=== PATIENT | male | born 1960 | race Caucasian/White ===

== ENCOUNTER 2017-04-27 14:39 | Inpatient (IN) | payer OTHER ==
[2017-04-27] MEDS ORDERED: ACETAMINOPHEN 325 MG TAB PO PRN (17:33)
[2017-04-27] MEDS ORDERED: traMADol 50 MG TAB PO PRN (17:34)
[2017-04-27] MEDS ORDERED: BISACODYL 10 MG SUPP PR PRN (17:35)
[2017-04-27] MEDS ORDERED: ALBUTEROL 200 PUFFS/18 GM MDI IH PRN (17:35)
--- NOTE | 2017-04-27 18:35 | PDOREHIP ---
Admission IRF-[facility] - Admission - 3 Day Assessment Period Admission Date/Day 1: 04/27/17 Day 2: 04/28/17 Day 3: 04/29/17 - Active Diagnoses Comorbidities and Co-existing Conditions at Admission: 31399. None of the Above - Skin Conditions Unhealed Pressure Ulcer (1 or more/Stage 1 or >)-Admission: 0. No
--- NOTE | 2017-04-27 19:16 | GHP ---
[f rep st] HISTORY AND PHYSICAL POST ADMISSION PHYSICIAN EVALUATION AND REHABILITATION TREATMENT PLAN DATE OF ADMISSION: 04/27/2017 DATE OF EVALUATION: 04/27/2017 TIME OF EVALUATION: 1745 REFERRING FACILITY: [facility] REFERRING PHYSICIAN: Jayden Mcgill MD IMPAIRMENT GROUP: 2.1. DATE OF ONSET: 04/21/2017 CONSULTING PHYSICIANS: He was seen in consultation with Dr. Almendarez of the pulmonary and critical care service. REHABLITATION DIAGNOSIS: Debility following craniotomy and evacuation of a chronic subdural hematoma. ETIOLOGIC DIAGNOSIS: Nontraumatic brain dysfunction. DATE OF SURGERY: 04/22/2017 HISTORY OF PRESENT ILLNESS: This patient developed a subdural home hematoma after a fall in January 2017. He fell while he was intoxicated on alcohol. He had gradual decrease in his balance subsequently. He was evaluated at [facility] for these symptoms on March 21, 2017. Brain imaging found a chronic right subdural hematoma. He had improvement in his mental status during that hospitalization which was attributed to his clearing from the effects of alcohol intoxication. He returned to the neurosurgery clinic on April 18, 2017, with complaints of worsened balance, some confusion, and possible double vision. Repeat CT scan on April 18 showed expansion of the chronic right subdural hematoma. He was unable to ambulate and was in a wheelchair. He had been sober for 6 days following a DUI arrest so alcohol intoxication was not a factor in his balance impairment. He was admitted to the hospital through the neurosurgery clinic. He underwent craniotomy and evacuation of the subdural hematoma on 04/22/2017. His postoperative course was uncomplicated. A subdural drain was placed during surgery and was removed 2 days prior to discharge. He was in the ICU until 2 days prior to discharge. He currently complains of continuing difficulty with ambulation. He reports that his left foot slides along the ground rather than being able to lift it while he is walking. Studies and labs in the hospital: Metabolic profile on 04/26/2017, the day before discharge, was overall within normal limits. CBC on 04/26/2017, showed mild anemia with a hemoglobin of 12.7, hematocrit of 36.7, white blood cell count was normal at 6.1, and platelet count was 156. Liver function tests on , revealed a low albumin at 2.7, slightly elevated AST at 57 with normal ALT at 65. On 04/23/2017, AST and ALT had been 130 and 126. Bilirubin was normal. Lipid panel was drawn on 04/23/2017. Total cholesterol was 180, HDL was 47, and LDL was 119. Other labs revealed a normal magnesium, normal PT , PTT, and INR. CT scan on 04/25/2017, of the head showed a right frontoparietal mixed attenuation subdural hematoma which had been stable since surgery. It was 1.5 cm in the greatest coronal dimension. There was mass effect on the underlying parenchyma, but no midline shift. There was a small amount of pneumocephalus. PRECAUTIONS: He is a fall risk and he has seizure precautions. ACTIVE COMORBIDITIES: He has no active tier 1, tier 2, or tier 3 comorbidities. PAST MEDICAL HISTORY: 1. Alcohol dependence and alcohol abuse. 2. History of concussion at age 16. 3. Asthma. PAST SURGICAL HISTORY: He has not had previous surgeries. ALLERGIES: There are no known drug allergies. PRE-HOSPITAL MEDICATIONS: 1. Albuterol 1-2 puffs p.r.n. 2. Famotidine 10 mg p.o. daily. 3. Lorazepam 1 mg every 8 hours p.r.n. 4. Multivitamin daily. 5. Thiamine 100 mg p.o. daily. ADMISSION MEDICATIONS: 1. Acetaminophen 650 mg q.6 hours p.r.n. 2. Albuterol 2 puffs q.4 hours p.r.n. 3. Famotidine 10 mg p.o. twice daily p.r.n. 4. Levetiracetam 1000 mg p.o. twice daily until 14 days postsurgical through . 5. Multivitamin p.o. daily. 6. Thiamine 100 mg p.o. daily. 7. Tramadol 25 mg p.o. q.6 hours p.r.n. FAMILY HISTORY: Noncontributory. PSYCHOSOCIAL HISTORY: He is . He lives with his . He has a large alcohol history, though he reports he was sober for 3 years and had a gradual relapse leading to his fall and his DUI. 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 REVIEW OF SYSTEMS: Pain is well controlled. In the hospital, he was taking tramadol 50 mg q.6 hours with acetaminophen though he has been discharged on tramadol 25 mg q.6 hours p.r.n. He denies headache, vision changes, difficulty swallowing, weakness, numbness, or tingling of the extremities other than his abnormal gait on the left lower extremity and abnormal balance. He denies cough or dyspnea. He denies chest pain or palpitations. He has had constipation in the hospital, but his last bowel movement was this afternoon. He denies nausea or vomiting. He reports a good appetite. He reports a volitional weight loss of approximately 30 pounds over a period of several months by being careful with his diet. He denies dysuria or urinary frequency. He denies skin rash or skin breakdown. He denies joint pain or joint swelling ; and otherwise a 10-point review of systems is negative. PHYSICAL EXAMINATION: VITAL SIGNS: Vitals are not had not yet available in the chart. Nurse reported blood pressure was 140/100. GENERAL: This is a well -nourished, well-developed man dressed in street clothes, sitting on the edge of the bed, cooperative, and in no acute distress. HEENT: Extraocular movements are intact. Pupils are equal, round, and reactive to light. Mucous membranes are moist. Dentition is in good condition. He has an uncrowded airway, Mallampati class 1. NECK: Supple. HEART: There is a regular rate and rhythm with no murmurs, rubs, or gallops. LUNGS: Clear to auscultation bilaterally. ABDOMEN: Soft, nontender, nondistended with normoactive bowel sounds and no hepatosplenomegaly. EXTREMITIES: There is no cyanosis, clubbing , or edema. He wears an ankle bracelet on the left ankle related to compliance with his DUI charge. NEUROLOGIC: He is alert and oriented x3. Cranial nerves 2-12 are grossly intact. Visual keys by confrontation are reduced in all quadrants, possibly more so in the right upper and right lower quadrants. There is no focal weakness. Sensation is intact to light touch. Deep tendon reflexes are 2+ bilaterally at the biceps and patella, and at the right Achilles tendon and hypoactive at the left Achilles tendon. There is no pronator drift. Cerebellar testing reveals normal [id number] bilaterally. CURRENT LEVEL OF FUNCTION: Per the preadmission screen: Regarding diet, feeding, and swallowing, he was on a regular diet. Regarding grooming, he had close supervision standing at the sink with minimal voice cuing. For dressing, he used a supervisor abattoir for lower body and had close supervision while sitting in a chair. Toileting was done with close supervision and minimal voice cuing. Regarding bed mobility, he was modified independent. He transferred with contact guard to standby assist with no device. Balance was noted to be decreased. Endurance was fair to good. Regarding gait, he required contact guard to close standby assist. He was able to ambulate 400 feet with breaks. He had decreased swing on the left lower extremity and decreased stepping. Regarding stairs, he was able to climb 24 stairs with a [id number] pattern and a step-thru pattern. Regarding cognition, he was noted to have mild impairment in attention, executive function, and visual spatial function. He was noted to be impulsive and to have decreased awareness of his impairments. IMPRESSION: This patient is a 56-year-old man with a large history of alcohol abuse and dependence who subsequently had several falls and developed a subdural hematoma. His symptoms worsened to the point where he was admitted to the hospital with expansion of a chronic subdural hematoma which required surgical evacuation. He underwent surgery on April 22, 2017. He has had an uneventful hospital course since then. He has significant balance impairment and may have cognitive issues, though they were not obvious on exam today. He is appropriate for inpatient rehabilitation where he will benefit from physical therapy and occupational therapy regarding mobility and activities of daily living, and speech therapy for cognitive evaluation. He will benefit from nursing care regarding wound healing, skin integrity, bowel and bladder, and medications. He will benefit from the care of physician regarding risk for seizures, risk for neurologic deterioration, pain management, and infection risk. His goal is to complete a rehabilitation stay and go home with his and outpatient services. For a safe discharge, it is anticipated that he will achieve independence with grooming and bed mobility, and modified independence for dressing, transfers, and ambulation with the least restrictive device on level and unlevel surfaces. It is anticipated that he may require supervision to standby assistance for bathing for safety. Depending on his progress regarding cognition, he may require 24 hour supervision. It is expected that he will demonstrate improved insight into his deficits. He will have therapy with physical therapy, occupational therapy, and speech and language pathology for 60 minutes per day per discipline on 5-7 days a week. His expected duration of stay is 5-7 days. It is anticipated that upon discharge, he will benefit from outpatient speech therapy and physical therapy. ASSESSMENT AND PLAN: 1. Debility with balance impairment following craniotomy and evacuation of a chronic subdural hematoma. PT and OT to optimize mobility and activities of daily living. 2. Possible cognitive impairment following craniotomy. Assessment and treatment per Speech and Language Pathology. Optimize sleep and maintain low stimulation initially. Avoid sedating medications. 3. Pain management, status post craniotomy. He appears to be quite comfortable. He was receiving tramadol 50 mg q.6 hours. He has been discharged on 25 mg; I will change that to a range of 25 to 50 mg q.6 hours as needed. I will also continue acetaminophen. 4. Seizure risk status post craniotomy and subdural hematoma. Levetiracetam will be continued through May 06 for a total of 14 days post surgery, per hospital discharge orders. 5. Restricted visual field. Further testing per occupational therapy. It seems unlikely that this is a result of his craniotomy. 6. Elevated blood pressure. He is out of the window for alcohol withdrawal. He may have hypertension. Blood pressure will be monitored and medications will be initiated if he needs them. 7. History of alcohol abuse and dependence. He will have assessment by Supervisor Motor Vehicle Assembly and appropriate referral for treatment after discharge. 8. Constipation, likely due to opiates and tramadol. Senna is ordered twice daily p.r.n. and bisacodyl as well as an enema are available if needed. 9. Volitional weight loss. There will be a dietary consult to optimize his nutrition for healing. 10. History of asthma. Albuterol has been ordered on an as-needed basis. DISCHARGE CONSIDERATIONS: He reports 2 steps to enter the house and there is a long curving staircase to the upper level. He is not driving nor is his as she has recently had cervical spine surgery. It is conceivable that they will need assistance especially for IADLs after he discharges. His reports that he could live on the lower level and not need to ascend the stairs. FOLLOWUP: Per the discharge summary, he is to follow up with neurosurgeon, Dr. Mcgill, 2 weeks postoperative or approximately May 06, 2017, for a wound check and staple removal. If he is still at inpatient rehabilitation at this time, this plan will be reviewed with Neurosurgery and possibly staple and suture removal can be done at inpatient rehabilitation. /[id number]/MODL MTDD
[2017-04-27] MEDS: levETIRAcetam 500 MG TAB PO SCH (20:24)
[2017-04-27] MEDS: traMADol 50 MG TAB PO PRN (20:24)
[2017-04-27] MEDS ORDERED: FAMOTIDINE 20 MG TAB PO PRN (21:00)
[2017-04-28] MEDS: ACETAMINOPHEN 325 MG TAB PO SCH ×4 (05:22→17:05)
[2017-04-28] MEDS: THIAMINE HCL 100 MG TAB PO SCH (08:07)
[2017-04-28] MEDS: MULTIVITAMINS 1 EACH TAB PO SCH (08:07)
[2017-04-28] MEDS: levETIRAcetam 500 MG TAB PO SCH ×2 (08:08→19:52)
--- NOTE | 2017-04-28 09:55 | SOAPPROG ---
SOAP Progress Note Assessment/Plan: Assessment: 56-year-old male with a subdural hematoma evacuated on March 21, 2017 after a month long gradual decrease in balance and function admitted to inpatient rehabilitation for impairments in cognition, mobility, and self-care. Today's update: This is the 1st time I am seeing the patient, all medical issues are new to this provider. Overall he is doing well, no neurological worsening. Participating well in therapies. Pain controlled on tramadol. Impaired mobility, self-care, and cognition status post subdural hematoma evacuation: Continue PT, OT, and speech language pathology for impairments. Low stimulation environment. Avoiding sedating medications. Pain management status post craniotomy: Continue tramadol, helpful. Continuing acetaminophen. Seizure risk status post subdural evacuation: Continue levetiracetam for total of 14 days post surgery, ending May 06. Visual field deficit: Further testing with occupational therapy. Hypertension: Normotensive at this point, continue to monitor. History of alcohol abuse and dependence: Working with social media community manager for treatment after discharge Constipation: Senna twice daily and physical as needed. Appears likely due to opioid use. Weight loss: Intentional, dietary consult. History of asthma: Albuterol as needed He in his family may need assistance especially for IADLs after discharge. Two steps to enter the house and a curving staircase to the upper level. He is not driving and his is recently had cervical spine surgery. They could potentially live on the lower level. He is to follow up with his neurosurgeon Dr. Mcgill approximately May 06 for wound check and staple removal. Review of neurosurgery if he is still on inpatient rehabilitation. Plan: 04/28/17 09:50 Subjective: Chief complaint: Headache pain No acute events overnight. Patient does endorse that he had mild headache that occurs in the evening, helped with tramadol. He has no particular concerns, no new numbness, tingling, weakness, or any new cognitive changes. No new chest pain or shortness of breath. He feels that he is making good progress so far but admits that his admission has been short so far. No other new concerns Objective: Vital Signs Temp Pulse Resp BP Pulse Ox 36.4 C 84 18 121/87 H 95 04/28/17 06:51 04/28/17 06:51 04/28/17 06:51 04/28/17 06:51 04/28/17 06:51 04/27/17 04/28/17 04/29/17 05:59 05:59 05:59 Intake Total 440 Output Total 1350 Balance -910 Physical Exam - Physical Exam General Appearance: WD/WN, alert, no apparent distress EENT: No scleral icterus (R), No scleral icterus (L) Respiratory: No respiratory distress, No accessory muscle use Cardiac/Chest: normal peripheral pulses, regular rate, rhythm, No edema Skin: normal color, warm/dry, No cyanosis Extremities: No pedal edema, No swelling Neuro/Psych: alert, normal mood/affect, No sensory deficit ICD10 Worksheet Patient Problems: Problems Problem Status Onset Debility Acute S/P craniotomy Acute SDH (subdural hematoma) Acute
[2017-04-28] MEDS: SENNOSIDES 1 TAB PO PRN (17:09)
[2017-04-28] MEDS: traMADol 50 MG TAB PO PRN (17:37)
[2017-04-28] MEDS: DOCUSATE SODIUM 100 MG CAP PO SCH (19:52)
[2017-04-29] MEDS: ACETAMINOPHEN 325 MG TAB PO SCH ×4 (06:34→18:27)
[2017-04-29] MEDS: DOCUSATE SODIUM 100 MG CAP PO SCH ×2 (08:36→20:00)
[2017-04-29] MEDS: SENNOSIDES 1 TAB PO PRN ×2 (08:36→20:00)
[2017-04-29] MEDS: THIAMINE HCL 100 MG TAB PO SCH (08:36)
[2017-04-29] MEDS: levETIRAcetam 500 MG TAB PO SCH ×2 (08:38→20:00)
[2017-04-29] MEDS: MULTIVITAMINS 1 EACH TAB PO SCH (08:39)
[2017-04-29] MEDS ORDERED: MAGNESIUM HYDROXIDE 30 ML UDCUP PO PRN (09:05)
--- NOTE | 2017-04-29 10:56 | SOAPPROG ---
SOAP Progress Note Assessment/Plan: Assessment: 56-year-old male with a subdural hematoma evacuated 04/22/2017 after a month long gradual decrease in balance and function admitted to inpatient rehabilitation for impairments in cognition, mobility, and self-care. * Impaired mobility, self-care, and cognition status post subdural hematoma evacuation. Initial functional independence measure 81. Standby assistance for transfers and ambulation and stairs. Standby assistance for activities of daily living. Decreased safety awareness. Drops items and has poor awareness that there on the floor. Unsafe attempting to don or doff pants while standing. Continue PT, OT, * Cognitive impairment. Scored 19/30 on the MOCA; 23/30 on the OLOG, but well below expected given age and education. Decreased executive function common, recall, Celexa Gee fluency. Impulsive with decreased insight. Continue speech language pathology for impairments. Low stimulation environment. Avoiding sedating medications * Pain management status post craniotomy: Continue tramadol p.r.n; he may decrease use due to constipating effect.. Continuing acetaminophen. * Seizure risk status post subdural evacuation: Continue levetiracetam for total of 14 days post surgery, ending May 06. * Visual field deficit: Further testing with occupational therapy. * Elevated blood pressure. Improved since admission. Continue to monitor. * History of alcohol abuse and dependence: Working with socially responsible investment adviser for treatment after discharge * Constipation: Appears likely due to opioid use. Continue senna; add milk of magnesia per his request. * Weight loss: Intentional, dietary consult. * History of asthma: Albuterol as needed Attended staffing, 15 minutes. Discussed with case management, pharmacy, dietitian, nursing, PT, OT, TUTORIAL LABORATORY SUPERVISOR. Patient was impulsively desiring to be discharged from the facility and did not want to be compliant with calling for assistance with mobility and ADLs. He subsequently was agreeable to staying. Set discharge goal of mid to end of next week, 05/04-05/06 2017. roller shop utility worker will attempt to arrange discharge to alcohol rehabilitation facility. 04/29/17 13:03 Subjective: Unhappy about alarms on bed and chair and need for assistance with transfers and mobility. Also has constipation. Sleeping well. Overall no pain at the incision but has what he describes as a dull thyroid deep to the incision over the posterior frontal/temporal region. Objective: Vital Signs Temp Pulse Resp BP Pulse Ox 36.6 C 82 14 127/90 H 95 04/28/17 19:51 04/28/17 19:51 04/28/17 19:51 04/28/17 19:51 04/28/17 19:51 04/28/17 04/29/17 04/30/17 05:59 05:59 05:59 Intake Total 440 1080 Output Total 1350 500 Balance -910 580 - Time Spent With Patient Time Spent With Patient: Greater than 35 minutes floor time today, including more than 50% of time in coordination of care during staffing meeting, and counseling patient. Physical Exam - Physical Exam General Appearance: WD/WN, alert, no apparent distress Respiratory: No respiratory distress, No accessory muscle use Skin: normal color, warm/dry, other (Sutures and 2 farida over the posterior cm. Clean dry and intact.) Neuro/Psych: no motor/sensory deficits, alert, normal mood/affect, oriented x 3 , other (Perseverative) ICD10 Worksheet Patient Problems: Problems Problem Status Onset Debility Acute S/P craniotomy Acute SDH (subdural hematoma) Acute
[2017-04-30] MEDS: ACETAMINOPHEN 325 MG TAB PO SCH ×4 (06:44→17:28)
[2017-04-30] MEDS: THIAMINE HCL 100 MG TAB PO SCH (09:01)
[2017-04-30] MEDS: MULTIVITAMINS 1 EACH TAB PO SCH (09:02)
[2017-04-30] MEDS: SENNOSIDES 1 TAB PO PRN (09:02)
[2017-04-30] MEDS: levETIRAcetam 500 MG TAB PO SCH ×2 (09:02→20:21)
[2017-04-30] MEDS: DOCUSATE SODIUM 100 MG CAP PO SCH ×2 (09:22→20:21)
--- NOTE | 2017-04-30 13:24 | SOAPPROG ---
SOAP Progress Note Assessment/Plan: Assessment: 56-year-old male with a subdural hematoma evacuated 04/22/2017 after a month long gradual decrease in balance and function admitted to inpatient rehabilitation for impairments in cognition, mobility, and self-care. * Impaired mobility, self-care, and cognition status post subdural hematoma evacuation. Initial functional independence measure 81. Standby assistance for transfers and ambulation and stairs. Standby assistance for activities of daily living. Decreased safety awareness. Drops items and has poor awareness that there on the floor. Unsafe attempting to don or doff pants while standing. Continue PT, OT, * Cognitive impairment. Scored 19/30 on the MOCA; 23/30 on the OLOG, but well below expected given age and education. Decreased executive function common, recall, Celexa Gee fluency. Impulsive with decreased insight. Continue speech language pathology for impairments. Low stimulation environment. Avoiding sedating medications * Pain management status post craniotomy: Patient avoiding tramadol 2/2 constipation, using tylenol PRN - if tramadol needs increase, plan on scheduled laxatives * Seizure risk status post subdural evacuation: Continue levetiracetam for total of 14 days post surgery, ending May 06. * Visual field deficit: Further testing with occupational therapy. * Elevated blood pressure. Stable o/n, cont monitor * History of alcohol abuse and dependence: Working with social human services assistants for treatment after discharge * Constipation: resolved 2/2 aggressive bowel regimen - cont scheduled senokot, will add scheduled laxatives tomorrow if recurs * Weight loss: Intentional, dietary consult. * History of asthma: Albuterol as needed Discharge goal of mid to end of next week, 05/04-05/06 2017. ammonia worker will attempt to arrange discharge to alcohol rehabilitation facility. Subjective: patient went out for a 20 minute walk, large BM yesterday s/p MoM/suppository Objective: Vital Signs Temp Pulse Resp BP Pulse Ox 36.6 C 86 14 114/83 H 99 04/29/17 18:28 04/30/17 08:00 04/30/17 08:00 04/30/17 08:00 04/30/17 08:00 04/29/17 04/30/17 05/01/17 05:59 05:59 05:59 Intake Total 1080 800 Output Total 500 850 Balance 580 -50 Physical Exam - Physical Exam General Appearance: alert, no apparent distress, No obtunded, No anxiety Respiratory: lungs clear, normal breath sounds, No respiratory distress, No crackles, No rales, No rhonchi, No wheezing Cardiac/Chest: regular rate, rhythm, No edema, No tachycardia, No systolic murmur, No irregularly irregular Abdomen: non-tender, soft, other (reduced bowel sounds), No distended, No guarding Skin: other (no erythema around R scalp incision site, [address], dried blood along incision, no overt tenderness) Neuro/Psych: oriented x 3, other (motor 5/5 bilat UE/LE, sensation intact bilat , CN II-XII intact and tested, cooperative and following commands, no asterixes , concentration 7/7) ICD10 Worksheet Patient Problems: Problems Problem Status Onset SDH (subdural hematoma) Acute S/P craniotomy Acute Debility Acute
[2017-05-01] MEDS: ACETAMINOPHEN 325 MG TAB PO SCH ×2 (06:52)
[2017-05-01] MEDS: MULTIVITAMINS 1 EACH TAB PO SCH (08:22)
[2017-05-01] MEDS: THIAMINE HCL 100 MG TAB PO SCH (08:22)
[2017-05-01] MEDS: DOCUSATE SODIUM 100 MG CAP PO SCH ×2 (08:22→21:17)
[2017-05-01] MEDS: levETIRAcetam 500 MG TAB PO SCH ×2 (08:22→21:17)
--- NOTE | 2017-05-01 15:02 | SOAPPROG ---
SOAP Progress Note Assessment/Plan: Assessment: 56-year-old male with a subdural hematoma evacuated 04/22/2017 after a month long gradual decrease in balance and function admitted to inpatient rehabilitation for impairments in cognition, mobility, and self-care. Plan: * Impaired mobility, self-care, and cognition status post subdural hematoma evacuation. Initial functional independence measure 81. Ambulating with cane, going outside safely with staff. Standby assistance for activities of daily living. Decreased safety awareness. Continue PT, OT * SDH. S/p R craniotomy by Dr. Mcgill, farida in posterior aspect, healing looking well - patient asked if he can wear a ball-cap, and presently I see no contraindications so long as it is not tight fitting, does not irritate healing surg site * Cognitive impairment. Scored 19/30 on the MOCA; 23/30 on the OLOG, but well below expected given age and education. Decreased executive function common, recall, Celexa Gee fluency. Impulsivity decreasing, becoming more patient with staff. Continue speech language pathology for impairments. Low stimulation environment. Avoiding sedating medications * Pain management status post craniotomy: Patient avoiding tramadol 2/2 constipation, using tylenol PRN - if tramadol needs increase, plan on scheduled laxatives * Seizure risk status post subdural evacuation: Continue levetiracetam for total of 14 days post surgery, ending May 06. * Visual field deficit: Further testing with occupational therapy. * Elevated blood pressure. Stable o/n, cont monitor * History of alcohol abuse and dependence: Working with director of social work for treatment after discharge * Constipation: resolved 2/2 aggressive bowel regimen - cont scheduled senokot, has had BM today * Weight loss: Intentional, dietary consult. * History of asthma: Albuterol as needed Discharge goal of mid to end of next week, 05/04-05/06 2017. whanau support worker will attempt to arrange discharge to alcohol rehabilitation facility. 05/01/17 14:59 05/01/17 15:01 Subjective: patient optimistic about recovery, had a BM Objective: Vital Signs Temp Pulse Resp BP Pulse Ox 36.8 C 80 18 118/95 H 100 05/01/17 08:00 05/01/17 08:00 05/01/17 08:00 04/30/17 18:38 05/01/17 08:00 08/09/0405/01/17 05/02/17 05:59 05:59 05:59 Intake Total 800 200 240 Output Total 850 Balance -50 200 240 Physical Exam - Physical Exam General Appearance: alert, no apparent distress, No obtunded, No anxiety Respiratory: lungs clear, normal breath sounds, No crackles, No rales, No wheezing Cardiac/Chest: regular rate, rhythm, No edema, No tachycardia, No systolic murmur, No irregularly irregular Abdomen: normal bowel sounds, non-tender, soft, No distended, No guarding Skin: other (no erythema/induration at surg site on scalp, mild scabbing, [address] posteriorly, not opening) Neuro/Psych: normal mood/affect, oriented x 3, other (CN II-XII intact and tested, motor 5/5 bilat UE/LE, sensation intact bilat, mild ataxia w/ ambulation , cooperative and follows commands) ICD10 Worksheet Patient Problems: Problems Problem Status Onset SDH (subdural hematoma) Acute S/P craniotomy Acute Debility Acute
[2017-05-01] MEDS: ACETAMINOPHEN 325 MG TAB PO PRN (17:54)
[2017-05-02] MEDS: levETIRAcetam 500 MG TAB PO SCH ×2 (09:35→20:46)
[2017-05-02] MEDS: MULTIVITAMINS 1 EACH TAB PO SCH (09:35)
[2017-05-02] MEDS: THIAMINE HCL 100 MG TAB PO SCH (09:35)
[2017-05-02] MEDS: DOCUSATE SODIUM 100 MG CAP PO SCH ×2 (09:35→20:46)
--- NOTE | 2017-05-02 12:58 | SOAPPROG ---
SOAP Progress Note Assessment/Plan: Assessment: 56-year-old male with a subdural hematoma evacuated 04/22/2017 after a month long gradual decrease in balance and function admitted to inpatient rehabilitation for impairments in cognition, mobility, and self-care. * Impaired mobility, self-care, and cognition status post subdural hematoma evacuation. Initial functional independence measure 81 on 04/29/2017; improved to the 92 on 05/02/2017. Independent with bed mobility and transfers. Walked 500 feet with a trekking pole, require supervision if he is outside or distracted. He has left sided neglect. Modified independent for activities of daily living. OT notes decreased judgment re safety, for instance standing on 1 leg to don pants. Continue PT, OT. * Cognitive impairment. Scored 19/30 on the MOCA; 23/30 on the OLOG, but well below expected given age and education. 5 standard deviations below the mean on the Frontal Assessment Battery. Decreased executive function, recall, lexical fluency. Impulsive with decreased insight. Continue speech language pathology for impairments. He reports a renewed commitment to working with DIRECTOR OF ANALYTICS on cognitive issues. Low stimulation environment. Avoid sedating medications * Pain management status post craniotomy: Adequate with p.r.n. acetaminophen. Not using tramadol. * Seizure risk status post subdural evacuation: Continue levetiracetam for total of 14 days post surgery, ending May 06. * Left hemineglect. Increases safety hazard. * Elevated blood pressure when admitted. Resolved. * History of alcohol abuse and dependence: Working with manager social work for treatment after discharge * Constipation: Resolved. Continue senna; docusate and milk of magnesia per his request. * Weight loss: Intentional, dietary consult. * History of asthma: Albuterol as needed Attended staffing, 15 minutes. Discussed with case management, pharmacy, dietitian, nursing, PT, OT, DIRECTOR OF ANALYTICS. He has presented challenges on the unit with impulsive changes in behavior, unreasonable demands, sometimes inappropriately assertive; observe for better behavior and increased compliance. Continue. discharge goal of 05/04-05/06 2017, to alcohol rehabilitation facility. Follow-up: He is to see neurosurgeon Dr. Mcgill 2 weeks postoperative or approximately 05/06/2017, for wound check and staple removal. 05/02/17 15:22 Subjective: Very apologetic regarding rude interactions with speech therapy earlier today. He had a long meeting with manager social work regarding behaviors, brain injury, duration of stay and disposition issues. He is in agreement did stay through May 06 and subsequently disposition to [facility] for drug and alcohol rehabilitation has been arranged. Other than emotionally trying day he denies pain, dyspnea, cough, fevers, chills. Objective: Vital Signs Temp Pulse Resp BP Pulse Ox 36.6 C 89 18 126/91 H 98 05/02/17 08:00 05/02/17 08:00 05/02/17 08:00 05/02/17 08:00 05/02/17 08:00 05/01/17 05/02/17 05/03/17 05:59 05:59 05:59 Intake Total 200 840 Balance 200 840 - Time Spent With Patient Time Spent With Patient: Greater than 35 minutes floor time today, including more than 50% of time in coordination of care during staffing meeting, and counseling patient and his . Physical Exam - Physical Exam General Appearance: WD/WN, alert, no apparent distress Respiratory: No respiratory distress, No accessory muscle use Skin: normal color, warm/dry Neuro/Psych: alert, normal mood/affect, oriented x 3 ICD10 Worksheet Patient Problems: Problems Problem Status Onset Debility Acute S/P craniotomy Acute SDH (subdural hematoma) Acute
[2017-05-02] MEDS: ACETAMINOPHEN 325 MG TAB PO PRN (20:48)
[2017-05-03] MEDS: MULTIVITAMINS 1 EACH TAB PO SCH (09:19)
[2017-05-03] MEDS: THIAMINE HCL 100 MG TAB PO SCH (09:19)
[2017-05-03] MEDS: levETIRAcetam 500 MG TAB PO SCH ×2 (09:19→21:08)
[2017-05-03] MEDS: DOCUSATE SODIUM 100 MG CAP PO SCH ×3 (09:20→21:12)
[2017-05-03] MEDS: ACETAMINOPHEN 325 MG TAB PO PRN ×2 (13:01→21:08)
[2017-05-04] MEDS: levETIRAcetam 500 MG TAB PO SCH ×2 (07:35→19:17)
[2017-05-04] MEDS: MULTIVITAMINS 1 EACH TAB PO SCH (07:35)
[2017-05-04] MEDS: DOCUSATE SODIUM 100 MG CAP PO SCH ×3 (07:35→19:19)
--- NOTE | 2017-05-04 12:20 | SOAPPROG ---
SOAP Progress Note Assessment/Plan: Assessment: 56-year-old male with right subdural hematoma evacuated 04/22/2017 after a month long gradual decrease in balance and function admitted to inpatient rehabilitation for impairments in cognition, mobility, and self-care. * Impaired mobility, self-care, and cognition status post subdural hematoma evacuation. Initial functional independence measure 81 on 04/29/2017; improved to the 92 on 05/02/2017. Independent with bed mobility and transfers. Walked 500 feet with a trekking pole, require supervision if he is outside or distracted. He has left sided neglect. Modified independent for activities of daily living. OT notes decreased judgment re safety, for instance standing on 1 leg to don pants. Continue PT, OT. * Cognitive impairment. Scored 19/30 on the MOCA; 23/30 on the OLOG, but well below expected given age and education. 5 standard deviations below the mean on the Frontal Assessment Battery. Decreased executive function, recall, lexical fluency. Impulsive with decreased insight. Continue speech language pathology for impairments. He reports a renewed commitment to working with TONGUE LINING STITCHER on cognitive issues. Low stimulation environment. Avoid sedating medications * Pain management status post craniotomy: Adequate with p.r.n. acetaminophen. Not using tramadol. * Seizure risk status post subdural evacuation: Continue levetiracetam for total of 14 days post surgery, ending May 06. * Left hemineglect. Increases safety hazard. * Elevated blood pressure when admitted. Resolved. * History of alcohol abuse and dependence: Working with social media developer for treatment after discharge * Constipation: Resolved. Continue senna; docusate and milk of magnesia per his request. * Weight loss: Intentional, dietary consult. * History of asthma: Albuterol as needed Attended staffing, 15 minutes. Discussed with case management, pharmacy, dietitian, nursing, PT, OT, TONGUE LINING STITCHER. He has presented challenges on the unit with impulsive changes in behavior, unreasonable demands, sometimes inappropriately assertive; observe for better behavior and increased compliance. Continue. discharge goal of 05/04-05/06 2017, to alcohol rehabilitation facility. Follow-up: He is to see neurosurgeon Dr. Mcgill 2 weeks postoperative or approximately 05/06/2017, for wound check and staple removal. 05/02/17 15:22 05/04/17 12:17 Subjective: No complaints. Sleeping well. Denies fevers, chills, cough, dyspnea. Objective: Vital Signs Temp Pulse Resp BP Pulse Ox 36.4 C 76 16 116/85 H 97 05/04/17 07:54 05/04/17 07:54 05/04/17 07:54 05/04/17 07:54 05/04/17 07:54 05/03/17 05/04/17 05/05/17 05:59 05:59 05:59 Intake Total 250 900 Balance 250 900 Physical Exam - Physical Exam General Appearance: WD/WN, alert, no apparent distress Respiratory: No respiratory distress, No accessory muscle use Skin: normal color, warm/dry Neuro/Psych: alert, normal mood/affect, oriented x 3, abnormal gait (Doing balance exercises with PT, tapping cones on floor with alternate feet, with impaired balance when standing on right foot.) ICD10 Worksheet Patient Problems: Problems Problem Status Onset Debility Acute S/P craniotomy Acute SDH (subdural hematoma) Acute
[2017-05-04] MEDS: ACETAMINOPHEN 325 MG TAB PO PRN (16:21)
[2017-05-05] MEDS: levETIRAcetam 500 MG TAB PO SCH ×2 (08:36→19:40)
[2017-05-05] MEDS: MULTIVITAMINS 1 EACH TAB PO SCH (08:36)
[2017-05-05] MEDS: DOCUSATE SODIUM 100 MG CAP PO SCH ×2 (08:41→19:42)
[2017-05-05] MEDS: ACETAMINOPHEN 325 MG TAB PO PRN (12:37)
--- NOTE | 2017-05-05 15:22 | PDOREHIP ---
Admission [facility] - Admission - 3 Day Assessment Period Admission Date/Day 1: 04/27/17 Day 2: 04/28/17 Day 3: 04/29/17 Discharge [facility] - Discharge - 3 Day Assessment Period 2 Days Prior to Anticipated Discharge Date: 05/04/17 1 Day Prior to Anticipated Discharge Date: 05/05/17 Anticipated Discharge Date: 05/06/17 - Discharge Skin Conditions Unhealed Pressure Ulcer (1 or more/Stage 1 or >)-Discharge: 0. No
--- NOTE | 2017-05-05 15:26 | SOAPPROG ---
SOAP Progress Note Assessment/Plan: Assessment: 56-year-old male with right subdural hematoma evacuated 04/22/2017 after a month long gradual decrease in balance and function admitted to inpatient rehabilitation for impairments in cognition, mobility, and self-care. Today's update: Patient is doing well in rehab, goal is to discharge to acute alcohol and drug rehabilitation facility. Also goal will be to engage in speech language pathology when possible. Patient will be stopping Keppra tomorrow and will not discharge home on it. Remainder of rehabilitation plan is unchanged below. A total of 35 minutes was spent on the floor in the care of the patient, the majority of which was spent counseling and coordination of care regarding discharge planning. * Impaired mobility, self-care, and cognition status post subdural hematoma evacuation. Initial functional independence measure 81 on 04/29/2017; improved to the 92 on 05/02/2017. Independent with bed mobility and transfers. Walked 500 feet with a trekking pole, require supervision if he is outside or distracted. He has left sided neglect. Modified independent for activities of daily living. OT notes decreased judgment re safety, for instance standing on 1 leg to don pants. Continue PT, OT. * Cognitive impairment. Scored 19/30 on the MOCA; 23/30 on the OLOG, but well below expected given age and education. 5 standard deviations below the mean on the Frontal Assessment Battery. Decreased executive function, recall, lexical fluency. Impulsive with decreased insight. Continue speech language pathology for impairments. He reports a renewed commitment to working with SUPERVISOR BLOOD DONOR RECRUITERS on cognitive issues. Low stimulation environment. Avoid sedating medications * Pain management status post craniotomy: Adequate with p.r.n. acetaminophen. Not using tramadol. * Seizure risk status post subdural evacuation: Continue levetiracetam for total of 14 days post surgery, ending May 06. * Left hemineglect. Increases safety hazard. * Elevated blood pressure when admitted. Resolved. * History of alcohol abuse and dependence: Working with social media campaign manager for treatment after discharge * Constipation: Resolved. Continue senna; docusate and milk of magnesia per his request. * Weight loss: Intentional, dietary consult. * History of asthma: Albuterol as needed He has presented challenges on the unit with impulsive changes in behavior, unreasonable demands, sometimes inappropriately assertive; observe for better behavior and increased compliance. Continue. discharge goal of 05/06, to [facility]. Follow-up: He is to see neurosurgeon Dr. Mcgill 2 weeks postoperative or approximately 05/06/2017, for wound check and staple removal. Plan: 04/28/17 09:50 05/05/17 15:23 05/05/17 15:26 Subjective: Chief complaint: Seizure prophylaxis Patient today notes that rehabilitation is going well, no new shortness of breath, chest pain, numbness, tingling, or weakness. He is inquiring about the duration of his antiseizure medications, which should be discontinued tomorrow. He does not want to go home on those medications. Otherwise rehabilitation is going well, no impairments to his progress. Preparing discharge information today. Objective: Vital Signs Temp Pulse Resp BP Pulse Ox 36.4 C 97 18 110/89 H 95 05/05/17 07:14 05/05/17 07:14 05/05/17 07:14 05/05/17 07:14 05/05/17 07:14 05/04/17 05/05/17 05/06/17 05:59 05:59 05:59 Intake Total 900 Balance 900 Physical Exam - Physical Exam General Appearance: WD/WN, alert, no apparent distress Respiratory: No respiratory distress, No accessory muscle use Cardiac/Chest: normal peripheral pulses, regular rate, rhythm Skin: normal color, warm/dry, No cyanosis Extremities: No pedal edema, No swelling Neuro/Psych: alert, normal mood/affect (Working well with occupational therapy in therapy session, working on home exercise program.) ICD10 Worksheet Patient Problems: Problems Problem Status Onset Debility Acute S/P craniotomy Acute SDH (subdural hematoma) Acute
--- NOTE | 2017-05-05 16:40 | PDDCSUM ---
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 Status post craniotomy and evacuation of chronic subdural hematoma Discharge diagnosis: Same Comorbid diagnoses: Impairments in mobility, self-care, and cognition, acute pain, elevated seizure risk, left salazar-neglect, hypertension, history of alcohol abuse and dependence, constipation, weight loss, history of asthma Consultations: physical therapy, occupational therapy, speech language pathology , social work, dietary Procedures: None Reason for admission: Please see full history and physical by Dr. Fountain dated 04/27/2017 for full details, but briefly the patient had a distant fall in January of 2017 and developed a chronic subdural hematoma. He had a gradual decrease in his balance and was evaluated at [facility] on March 21, 2017 for the symptoms. He was found to have a chronic right subdural hematoma, mental status improved but was potentially confounded by alcohol intoxication and resolving affect. On April 18, 2017 he presented the neurosurgery clinic with some balance problems confusion and double vision and a repeat CT scan showed expansion of the subdural hematoma. He had craniotomy and evacuation on 2016 and had an uncomplicated postoperative course. He had 2 days in ICU. He continued to have functional impairments in mobility, self-care, and cognition that qualified him for inpatient rehabilitation and was admitted on 04/27/2017 Rehabilitation course: His overall rehab course went well, his initial functional independence measure was 81 and improved to 92 on 05/02/2017. He is independent with bed mobility and transfers, walking with a tracking pole, and requiring some supervision. He has some ongoing left-sided neglect. He is generally modified independent for activities of daily living. He has some ongoing cognitive impairment, improved. He continued levetiracetam for 14 total days after the surgery, ending May 06. He also acknowledged significant impairments from alcohol abuse and dependence and is working with social work associate planning to discharge to acute alcohol rehab program. Discharge plan: Acute alcohol rehabilitation Condition: Greatly improved functionally, ambulating with a tracking pole comma ongoing left-sided neglect, modified independent for activities of daily living, and benefit from some supervision. He is tolerating a regular diet with thin liquids and hold medications, no restrictions on his diet Medications at discharge: Acetaminophen 650 mg p.o. q.6 hours p.r.n. for pain Docusate sodium 100 mg p. o. twice daily Sennosides 1 tab p.o. twice daily p.r.n. for constipation Multivitamin daily Albuterol inhaler 1-2 puffs inhaled q.4 hours p.r.n. for shortness of breath Famotidine 10 mg p.o. twice daily p.r.n. for GI distress Pending studies: None Issues to be addressed at follow-up: He will need ongoing help in management for alcohol abuse issues. Additionally, he will need follow up with speech therapy, possibly occupational therapy and physical therapy as well when available. This may not be immediately available at the treatment facility. Follow up: He will follow up with Dr. Mcgill need 2 weeks postoperatively or approximately 05/06/2017 for wound check and staple removal. On the day of discharge he had no questions. No new shortness of breath or chest pain, no new numbness, tingling, or weakness. His gait was slightly asymmetric with a limp on the left. he was appreciative of his rehabilitation course and looking forward to discharge. Vital signs are okay.
[2017-05-06] MEDS: MULTIVITAMINS 1 EACH TAB PO SCH (08:29)
[2017-05-06] MEDS: ACETAMINOPHEN 325 MG TAB PO PRN (08:30)
[2017-05-06] MEDS: DOCUSATE SODIUM 100 MG CAP PO SCH (08:30)
[2017-05-06] MEDS: levETIRAcetam 500 MG TAB PO SCH (08:30)
[2017-05-06 08:36] VITALS: BP 123/90; PULSE 87; RESP 16; TEMP 97.6; O2SAT 97
== END 2017-05-06 17:58 | DRG 949 ==
LOC: BREH 16:51
PROVIDERS: ADMIT Internal Medicine; ATTEND Physical Medicine & Rehabilitation
PROC: F0636ZZ Communicative/Cognitive Integration Skills Treatment of Neurological System - Whole Body (ICD-10-PCS; principal; 2017-04-27)
PROC: F08Z7ZZ Vocational Activities and Functional Community or Work Reintegration Skills Treatment (ICD-10-PCS; principal; 2017-04-27)
PROC: F07M3ZZ Motor Function Treatment of Musculoskeletal System - Whole Body (ICD-10-PCS; principal; 2017-04-27)
DX: Z48.811 Encounter for surgical aftercare following surgery on the nervous system (principal); I62.03 Nontraumatic chronic subdural hemorrhage; R26.89 Other abnormalities of gait and mobility; R41.4 Neurologic neglect syndrome; K59.03 Drug induced constipation; R63.4 Abnormal weight loss; J45.909 Unspecified asthma, uncomplicated; F10.20 Alcohol dependence, uncomplicated; R41.842 Visuospatial deficit; R41.844 Frontal lobe and executive function deficit; R41.840 Attention and concentration deficit
CPT/HCPCS: 92507-GN; 92522-GN; 97110-GO; 97110-GP; 97112-GO; 97112-GP; 97116-GP; 97161-GP; 97166-GO; 97530-GO; 97530-GP; 97532-GO; 97535-GO